=== PATIENT | male | born 1985 | race Caucasian/White ===

== ENCOUNTER 2021-11-03 22:12 | Emergency (ER) | payer BC ==
[2021-11-03 23:46] LABS: Absolute Lymphocytes (CBC) 2.3 K/uL (0.7-4.9); Hematocrit 46.6 % (39.6-49.0); MPV 9.6 fL (7.6-11.3); RBC Red Blood Cell Count 5.65 M/uL (4.33-5.43)
[2021-11-04 00:04] LABS: Protime INR 0.91
[2021-11-04 00:05] LABS: ALT/SGPT 84 U/L (12-78); AST/SGOT 34 U/L (15-37); Albumin 4.3 g/dL (3.4-5.0); Alkaline Phosphatase 59 U/L (45-117); BUN Blood Urea Nitrogen 14 mg/dL (7-18); Bicarbonate 28 mmol/L (21-32); Bilirubin Direct < 0.1 mg/dL (0-0.2); Bilirubin Total 0.3 mg/dL (0.2-1.0); Glucose Level 104 mg/dL (74-106); Magnesium 2.5 mg/dL (1.8-2.4); NT PRO-BNP 43 pg/mL (<125); Potassium 4.3 mmol/L (3.5-5.1); Protein, Total 8.3 g/dL (6.4-8.2); Sodium Level 136 mmol/L (136-145); Troponin (Emerg Dept Use Only) < 0.02 ng/mL (0.0-0.045)
[2021-11-04 01:21] LABS: Barbiturates NEGATIVE (NEGATIVE); Benzodiazepines NEGATIVE (NEGATIVE); Cocaine NEGATIVE (NEGATIVE); METHAMPHETAM NEGATIVE (NEGATIVE); Methadone NEGATIVE (NEGATIVE); Opiates NEGATIVE (NEGATIVE); Phencyclidine NEGATIVE (NEGATIVE); THC Cannibis NEGATIVE (NEGATIVE)
--- NOTE | 2021-11-04 01:30 | EDPHYS ---
Physician Documentation [facility] Name: José Miguel Carney Age: 35 yrs Sex: Male : 1985 Arrival Date: 11/03/2021 Time: 22:16 Bed 14 Private MD: ED Physician Garrett Vogel HPI: 11/04 00:47 This 35 yrs old Male presents to ER via Ambulatory with complaints of Chest Pain, High kb Blood Pressure. 00:47 The patient or guardian reports chest pain that is located primarily in the anterior kb chest wall, left. The pain does not radiate. Associated signs and symptoms: The patient has no apparent associated signs or symptoms. The chest pain is described as aching. Duration: The patient or guardian reports a single episode. Modifying factors: The symptoms are alleviated by nothing. the symptoms are aggravated by nothing. Severity of pain: At its worst the pain was mild moderate in the emergency department the pain is unchanged. The patient has not experienced similar symptoms in the past. The patient has not recently seen a physician. Historical: - Allergies: 11/03 23:30 No Known Allergies; bb - Home Meds: 23:30 None [Active]; bb - PMHx: 23:30 None; bb - PSHx: 23:30 hernia; bb - Immunization history:: Adult Immunizations up to date, Client reports receiving the Pradip \\T\\ Pradip single-dose vaccine. - Social history:: Smoking status: unknown. ROS: 11/04 00:46 Constitutional: Negative for fever, chills, and weight loss. kb Cardiovascular: Positive for chest pain, Negative for edema, orthopnea, palpitations, paroxysmal nocturnal dyspnea. All other systems are negative. Exam: 00:46 Constitutional: This is a well developed, well nourished patient who is awake, alert, kb and in no acute distress. Head/Face: Normocephalic, atraumatic. ENT: Moist Mucous membranes Cardiovascular: Regular rate and rhythm with a normal S1 and S2. No gallops, murmurs, or rubs. No pulse deficits. Respiratory: Respirations even and unlabored. No increased work of breathing. Talking in full sentences Abdomen/GI: Soft, non-tender. No distention Skin: Warm, dry with normal turgor. Normal color. MS/ Extremity: Pulses equal, no cyanosis. Neurovascular intact. Full, normal range of motion. Neuro: Awake and alert, GCS 15, oriented to person, place, time, and situation. Moves all extremities. Normal gait. Psych: Awake, alert, with orientation to person, place and time. Behavior, mood, and affect are within normal limits. Vital Signs: 11/03 23:25 BP 158 / 104; Pulse 76; Resp 16 S; Temp 98(TE); Pulse Ox 100% on R/A; Weight 108.86 kg bb (R); Height 5 ft. 11 in. (180.34 cm) (R); Pain 3/; 11/04 01:25 BP 141 / 84; Pulse 72; Resp 18; Pulse Ox 97% on R/A; sm5 11/03 23:25 Body Mass Index 33.47 (108.86 kg, 180.34 cm) bb MDM: 11/03 23:43 Patient medically screened. kb 11/04 00:46 Data reviewed: vital signs, nurses notes. Data interpreted: Pulse oximetry: on room air kb is 100 %. Interpretation: normal. 01:28 Counseling: I had a detailed discussion with the patient and/or guardian regarding: the kb historical points, exam findings, and any diagnostic results supporting the discharge/admit diagnosis, lab results, radiology results, the need for outpatient follow up, a family practitioner, to return to the emergency department if symptoms worsen or persist or if there are any questions or concerns that arise at home. ED course: Pain has resolved without intervention. 11/03 23:33 Order name: Basic Metabolic Panel 11/03 23:33 Order name: CBC with Diff 11/03 23:33 Order name: LFT's; Complete Time: 00:13 11/03 23:33 Order name: Magnesium; Complete Time: 00:13 11/03 23:33 Order name: NT PRO-BNP; Complete Time: 00:13 11/03 23:33 Order name: PT-INR; Complete Time: 00:13 11/03 23:33 Order name: Troponin (emerg Dept Use Only); Complete Time: 00:13 11/03 23:33 Order name: XRAY Chest (1 view) 11/03 23:33 Order name: EKG; Complete Time: 23:34 11/03 23:33 Order name: Cardiac monitoring; Complete Time: 01:05 bb 11/03 23:33 Order name: COVID-19 SARS RT PCR (Document "Date of Onset" if Symptomatic); Complete bb Time: 00:25 11/03 23:33 Order name: Basic Metabolic Panel; Complete Time: 00:13 EDMS 11/03 23:33 Order name: CBC with Automated Diff; Complete Time: 23:50 EDMS 11/03 23:43 Order name: UDS; Complete Time: 01:25 kb 11/03 23:33 Order name: EKG - Nurse/Tech; Complete Time: 23:42 bb 11/03 23:33 Order name: IV Saline Lock; Complete Time: 23:42 bb 11/03 23:33 Order name: Labs collected and sent; Complete Time: 23:42 bb 11/03 23:33 Order name: O2 Per Protocol; Complete Time: 01:05 bb 11/03 23:33 Order name: O2 Sat Monitoring; Complete Time: 01:05 bb Administered Medications: No medications were administered Disposition: 04:05 Co-signature as Attending Physician, Garrett Vogel MD. [email or web address] Disposition Summary: 11/04/21 01:29 Discharge Ordered Location: Home kb Condition: Stable kb Diagnosis - Chest pain, unspecified kb Followup: kb - With: Emergency Department - When: As needed - Reason: Worsening of condition Followup: kb - With: Private Physician - When: 2 - 3 days - Reason: Recheck today's complaints, Continuance of care, Re-evaluation by your physician Discharge Instructions: - Discharge Summary Sheet kb - Nonspecific Chest Pain, Adult, [id number] kb Forms: - Medication Reconciliation Form kb - Thank You Letter kb - Antibiotic Education kb - Prescription Opioid Use kb Signatures: Dispatcher [employer] EDAnnalisa Baltazar FNP-C FNP-Ckb Ballard, Brenda, RN RN Garrett Anderson MD MD [email or web address] Corrections: (The following items were deleted from the chart) 11/03 23:30 23:30 PSHx: None; constanza apodaca
--- NOTE | 2021-11-04 01:30 | ER ---
Nurse's Notes [facility] Name: José Miguel Carney Age: 35 yrs Sex: Male : 1985 Arrival Date: 11/03/2021 Time: 22:16 Bed 14 Private MD: Diagnosis: Chest pain, unspecified Presentation: 11/03 23:25 Chief complaint: Patient states: he started having chest pain and increased heart rate bb at approx 2000 tonight pain is intermittent and does not radiate denies having similar symptoms in the past did not feel well during the day. Coronavirus screen: At this time, the client does not indicate any symptoms associated with coronavirus-19. Ebola Screen: No symptoms or risks identified at this time. Initial Sepsis Screen: Does the patient meet any 2 criteria? No. Patient's initial sepsis screen is negative. Does the patient have a suspected source of infection? No. Patient's initial sepsis screen is negative. Risk Assessment: Do you want to hurt yourself or someone else? Patient reports no desire to harm self or others. Onset of symptoms was November 03, 2021. 23:25 Method Of Arrival: Ambulatory bb 23:25 Acuity: HUNTER 3 bb Triage Assessment: 23:30 General: Appears in no apparent distress. Behavior is cooperative, anxious. Pain: bb Complains of pain in chest Pain currently is 3 out of 10 on a pain scale. Neuro: Level of Consciousness is awake, alert, obeys commands, Oriented to person, place, time, situation. Cardiovascular: Reports chest pain, Capillary refill < 3 seconds Patient's skin is warm and dry. Respiratory: Respiratory effort is even, unlabored, Respiratory pattern is regular. GI: No signs and/or symptoms were reported involving the gastrointestinal system. Derm: Skin is pink, warm \T\ dry. Musculoskeletal: Circulation, motion, and sensation intact. Historical: - Allergies: 23:30 No Known Allergies; bb - Home Meds: 23:30 None [Active]; bb - PMHx: 23:30 None; bb - PSHx: 23:30 hernia; bb - Immunization history:: Adult Immunizations up to date, Client reports receiving the Pradip \T\ Pradip single-dose vaccine. - Social history:: Smoking status: unknown. Screenin/29 01:25 Abuse screen: Denies threats or abuse. Denies injuries from another. Nutritional sm5 screening: No deficits noted. Tuberculosis screening: No symptoms or risk factors identified. Fall Risk No fall in past 12 months (0 pts). No secondary diagnosis (0 pts). IV access (20 points). Ambulatory Aid- None/Bed Rest/Nurse Assist (0 pts). Gait- Normal/Bed Rest/Wheelchair (0 pts) Mental Status- Oriented to own ability (0 pts). Total Urena Fall Scale indicates No Risk (0-24 pts). Assessment: : General: Appears in no apparent distress. Behavior is calm, cooperative. Pain: sm5 Complains of pain in chest Pain does not radiate. Pain began 8pm on 11/03. Neuro: No deficits noted. Level of Consciousness is awake, alert, Oriented to person, place, time, situation. Cardiovascular: Reports chest pain, feeling better than earlier Capillary refill < 3 seconds Patient's skin is warm and dry. 01:25 Respiratory: No deficits noted. Airway is patent Trachea midline Respiratory effort is sm5 even, unlabored. Vital Signs: 11/03 23:25 BP 158 / 104; Pulse 76; Resp 16 S; Temp 98(TE); Pulse Ox 100% on R/A; Weight 108.86 kg bb (R); Height 5 ft. 11 in. (180.34 cm) (R); Pain 01/14; 11/04 01:25 BP 141 / 84; Pulse 72; Resp 18; Pulse Ox 97% on R/A; sm5 11/03 23:25 Body Mass Index 33.47 (108.86 kg, 180.34 cm) bb ED Course: 11/03 22:16 Patient arrived in ED. ja2 23:30 Triage completed. bb 23:30 Arm band placed on Patient placed in waiting room, Patient notified of wait time. Labs bb ordered per protocol. Drawn by ED staff. 23:43 Annalisa Monaco FNP-C is PHCP. kb 23:43 Garrett Vogel MD is Attending Physician. kb 23:51 XRAY Chest (1 view) In Process Unspecified. EDMS 11/04 00:54 Elsy Garcia, CRISTÓBAL is Primary Nurse. sm5 01:05 UDS Sent. sm5 01:05 Basic Metabolic Panel Sent. sm5 01:05 CBC with Diff Sent. sm5 01:26 Patient has correct armband on for positive identification. Bed in low position. Call sm5 light in reach. Side rails up X2. residential monitor on. Pulse ox on. NIBP on. : No provider procedures requiring assistance completed. Patient maintains SpO2 sm5 saturation greater than 95% on room air. 01:38 IV discontinued, intact, bleeding controlled, No redness/swelling at site. Pressure sm5 dressing applied. Administered Medications: No medications were administered Outcome: : Discharge ordered by MD. muñoz 01:38 Discharged to home ambulatory, with family. sm5 :38 Condition: good 01:38 Discharge instructions given to patient, family, Instructed on discharge instructions, follow up and referral plans. 01:38 Patient left the ED. 5 Signatures: Dispatcher [employer] EDMS Annalisa Monaco, ORLY FOSTER-Tuyet Hernandez RN RN Sharlene Presley Sarah, RN RN 5 Corrections: (The following items were deleted from the chart) 11/03 23:30 23:30 PSHx: None; constanza apodaca 11/04 01:25 01:22 Cardiovascular: Reports chest pain, 5 5
[2021-11-04 01:45] VITALS: TEMP 98
[2021-11-04 01:46] VITALS: BP 141/84; O2SAT 97
--- NOTE | 2021-11-04 15:53 | RAD REPORT ---
EXAM DESCRIPTION: RAD - Chest Single View - 11/03/2021 11:50 pm CLINICAL HISTORY: CHEST PAIN. COMPARISON: None. TECHNIQUE: Single view AP chest radiograph(s). FINDINGS: Trace perihilar interstitial thickening. No infiltrate identified. No pleural effusion. No pneumothorax. Nonenlarged cardiomediastinal silhouette. No significant osseous abnormality. IMPRESSION: Trace perihilar interstitial thickening. No infiltrate identified. 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 The interpreting radiologist is fully responsible for the content of the report.
== END 2021-11-04 01:38 | disposition home or self-care (01) ==
LOC: ER 22:12
DX: R07.9 Chest pain, unspecified (principal); Z20.822 Contact with and (suspected) exposure to COVID-19
CPT/HCPCS: 93005; 85025; 80048; 36415; 83735; 85610; 80076; 84484; 83880; 80307; 71045; 99284; U0003